=== PATIENT | female | born 1995 | race Caucasian/White ===

== ENCOUNTER → 2020-04-23 | Emergency (ER) | payer OTHER ==
[~2020-04-23] VITALS: Ht 154.9 cm; Wt 61.2 kg
[~2020-04-23] MED LIST: CT SWABBABLE VALVE TRANS SET 1 EA INFUS.SET MC ONE; IOHEXOL-350 100 ML VIAL IV ONE; IV NS 0.9% 250 ML IV ONE; LEVOFLOXACIN 750 MG /D5W 150ML PIGGYBACK IV ONE; MORPHINE SULFATE INJ 2 MG/ML DISP.SYRIN IM ONE; MORPHINE SULFATE INJ 4 MG/ML DISP.SYRIN ONE; ONDANSETRON HCL/PF - ER 4 MG/2 ML VIAL IV ONE; ONDANSETRON HCL/PF 4 MG/2 ML VIAL ONE; TDAP [DIPH/PERTUSSIS/TET] 0.5 ML VIAL IM ONE; VANCOMYCIN HCL 1.25 GM in IV D5W 260 ML IV ONE
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
--- NOTE | 2020-04-23 14:55 | NUR ---
PT SEEN BY DR. CACERES
--- NOTE | 2020-04-23 14:56 | NUR ---
IV STARTED ON R AC G18 INTACT AND PATENT AND FLUSHING WELL.
--- NOTE | 2020-04-23 15:06 | NUR ---
CALLED [facility] [phone] TRAUMA SO TRANSFERED TO THE ER [facility] FAX BACK INTER FACILITY TRANSFER INFO TO [phone] DR. DE DIOS ON THE PHONE WITH DR. CACERES.
--- NOTE | 2020-04-23 15:10 | NUR ---
PT OUT FOR CT SCAN
--- NOTE | 2020-04-23 15:15 | NUR ---
JERSOND CURRENTLY WAITING FOR PT TO COME BACK FROM [place].
--- NOTE | 2020-04-23 15:16 | NUR ---
OPEN GLOBE INJURY R EYE [phone] [facility] 1 NEED OPHTHALMOLOGY REQUEST FOR TRANSFER FOR PT PLEASE FAX FACE SHEET AND CLINICALS TO: [phone] [facility].
--- NOTE | 2020-04-23 15:17 | NUR ---
PT IS ON HER WAY TO CT. OK TO BRING PT TO CT WITHOUT TEST BEING DONE.
--- NOTE | 2020-04-23 15:20 | NUR ---
IV ON R AC GOT INFILTRATED DURING CT SCAN INJECTION OF CONTRAST. IV SITE REMOVED. ELEVATED EXT, APPLIED ICE PACK TO SITE. IV RE-INSERTED ON L AC G18. INTACT AND PATENT AND FLUSHING WELL.
[2020-04-23 15:25] LABS: BASOPHILS # (AUTO) 0.1 /CMM (0.0-0.2); BASOPHILS % (AUTO) 0.3 % (0.0-2.0); EOSINOPHILS % (AUTO) 0.8 % (0.0-6.0); HEMATOCRIT 44 % (33-45); HEMOGLOBIN 13.3 g/dL (11.5-14.8); LYMPHOCYTES # (AUTO) 4.7 /CMM (0.8-4.8); MEAN CORPUSCULAR HGB CONC 30 g/dl (31.0-36.0); MEAN CORPUSCULAR VOLUME 92 fL (82-100); MONOCYTES # (AUTO) 0.3 /CMM (0.1-1.30); MONOCYTES % (AUTO) 1.7 % (2.0-12.0); NEUTROPHILS # (AUTO) 12.4 /CMM (1.8-8.9); NEUTROPHILS % (AUTO) 70.2 % (43.0-81.0); PLATELET COUNT (AUTO) 456 /CMM (150-450); RED BLOOD CELL COUNT(AUTO) 4.84 MIL/uL (4.0-5.2); WHITE BLOOD COUNT (AUTO) 17.6 K/uL (4.3-11.0)
[2020-04-23 15:39] LABS: CALCIUM, SERUM 8.8 mg/dL (8.5-10.1); CREATININE 1.3 mg/dL (0.6-1.3); POTASSIUM 3.5 mmol/L (3.5-5.1)
--- NOTE | 2020-04-23 16:19 | NUR ---
CALLED [facility] [[email or web address]] [phone] [facility] THEY GOT FAX AND ARE PROCESSING AND WILL CALL US BACK IF ACCEPTED, NO ETA
--- NOTE | 2020-04-23 16:19 | NUR ---
CALLED [facility] ETA IS [phone]
--- NOTE | 2020-04-23 16:21 | NUR ---
CALLED [facility] ETA [phone]
--- NOTE | 2020-04-23 16:30 | NUR ---
2 IV SITES INSERTED ON R WRIST G22 AND L FA G20. INTACT AND PATENT AND FLUSHING WELL.
--- NOTE | 2020-04-23 16:30 | NUR ---
REPORT GIVEN TO KORINA CARDENAS,TRAUMA NURSE, PATIENT ACCEPTED BY DR EL,DIRECT LINE IS [phone]
--- NOTE | 2020-04-23 16:43 | NUR ---
CALL BACK FROM [facility], INFORMED THAT PATIENT IS GOING TO [facility]
--- NOTE | 2020-04-23 16:45 | NUR ---
CALLED COUNTS INCLUDE 234 BEDS AT THE [facility] ETA 45 MINS PER STANISLAV
--- NOTE | 2020-04-23 16:59 | NUR ---
PTS MOTHER BY BEDSIDE. PT AND MOTHER SPOKE WITH OFFICER KATH ([phone]) AND OFFICER CHARANJIT ([phone]).
--- NOTE | 2020-04-23 17:00 | NUR ---
STILL UNABLE TO COLLECT URINE SPECIMEN. PT IS UNABLE TO PROVIDE AT THIS TIME.
--- NOTE | 2020-04-23 17:20 | NUR ---
FAXED MORA TO [phone]
--- NOTE | 2020-04-23 17:35 | NUR ---
REPORT GIVEN TO [employer] FOR [facility] BY BEDSIDE. ALL CT SCAN AND LAB RESULTS COPIES PROVIDED. PTS MOTHER BY BEDSIDE.
[2020-04-23 17:45] VITALS: BP 104/71
--- NOTE | 2020-04-23 17:58 | NUR ---
PT LEFT VIA GURNEY WITH [facility].
== END ==
LOC: ER 15:13
DX: S06.5X0A Traumatic subdural hemorrhage without loss of consciousness, initial encounter (principal); S05.71XA Avulsion of right eye, initial encounter; J93.83 Other pneumothorax; R51.9 Headache, unspecified; M54.2 Cervicalgia; Y04.8XXA Assault by other bodily force, initial encounter; Y93.89 Activity, other specified; Y92.89 Other specified places as the place of occurrence of the external cause; Y99.8 Other external cause status
CPT/HCPCS: 36415; 70450; 70486; 70498; 71250; 72125; 80048; 80320; 84702; 85025; 85730; 86850; 90471; 90715; 96365; 96368; 96372; 96375; 99291; 99292; A6403 ×2; J1956; J2270; J2405; J7050; Q9967 ×2; G0480; J7060